=== PATIENT | male | born 1935 | race Caucasian/White ===

== ENCOUNTER 2023-07-09 12:50 | Outpatient (CLI) | payer MEDICARE, BC | END 2023-07-09 12:51 | disposition home or self-care (01) | LOC: BICMRI 12:50 | PROVIDERS: ATTEND Nurse Practitioner Family | DX: M47.24 Other spondylosis with radiculopathy, thoracic region (principal); M51.14 Intervertebral disc disorders with radiculopathy, thoracic region; S22.089A Unspecified fracture of T11-T12 vertebra, initial encounter for closed fracture; M89.38 Hypertrophy of bone, other site | CPT/HCPCS: 72146 ==